=== PATIENT | female | born 2000 | race African-American/Black ===

== ENCOUNTER 2019-03-20 10:01 | Emergency (ER) | payer OTHER ==
[~2019-03-20] VITALS: Ht 162.6 cm; Wt 90.7 kg
[2019-03-20] MEDS ORDERED: VENTOLIN HFA 1818 GM INH (10:59)
[2019-03-20] MEDS ORDERED: PREDNISONE 20 M20 MG PO (10:59)
[2019-03-20 11:23] VITALS: BP 132/80
== END 2019-03-20 11:24 | disposition home or self-care (01) ==
LOC: ER 10:01
DX: J45.901 Unspecified asthma with (acute) exacerbation (principal)